=== PATIENT | female | born 1955 | race Caucasian/White ===

== ENCOUNTER → 2016-04-16 | Outpatient (CLI) | payer BC ==
[~2016-04-16] MED LIST: ACET-1256 PO; CALC600T9 PO; CIPR-255 PO; CLB/200 PO; FLUO40CA8 PO; HYDR-5688 PO; MULTTAB58 PO; OPTIRAY 320 IV PRN
--- NOTE | 2016-04-16 12:28 | DIAGNOSTIC IMAGING REPORT ---
CT OF THE CHEST WITH IV CONTRAST CLINICAL HISTORY: Left lower lobe pulmonary nodule. COMPARISON STUDY: CT of the abdomen and pelvis June 13, 2015. TECHNIQUE: Following IV administration of 92 mL of Optiray-320, helical axial images of the chest were obtained. Images were viewed in the axial, sagittal and coronal planes. IV contrast was administered without complication. CT DOSE: 650.30 mGycm FINDINGS: No enlarged axillary, mediastinal or hilar lymph nodes are present. The size of the heart is normal. There is no pericardial effusion. The central airways are patent. There is no consolidation. A 9 mm circumscribed nodule within the medial basilar segment of the left lower lobe is noted on image 237 of 326. This has slightly increased in size since exam of June 13, 2015 when it measured 8 mm. This may contain a few small foci of fat. There is a calcite granulomas within the right upper lobe. Bony thorax is unremarkable. There are few calcifications within the liver which were present on prior exam. IMPRESSION: Slight increase in size of the circumscribed 9 mm left lower lobe nodule since exam of June 13, 2015. This may contain a few foci of fat. This may reflect a hamartoma although a slow-growing neoplasm such as a carcinoid would be difficult to exclude. A follow-up chest CT in 6 months is recommended. Electronically signed by: Dakota Pham M.D. 04/16/2016 12:27 PM Dictated Date/Time: 04/16/2016 9:56 AM
== END | disposition home or self-care (01) ==
LOC: C.CTS 09:16
PROVIDERS: ATTEND Internal Medicine
DX: R91.1 Solitary pulmonary nodule (principal)

== ENCOUNTER → 2016-10-29 | Outpatient (CLI) | payer BC ==
[~2016-10-29] MED LIST changes: -OPTIRAY 320 IV PRN
== END | disposition home or self-care (01) ==
LOC: C.LABSPEC 14:41
PROVIDERS: ATTEND Internal Medicine
DX: Z12.11 Encounter for screening for malignant neoplasm of colon (principal)

== ENCOUNTER → 2016-11-02 | Outpatient (CLI) | payer BC ==
[2016-11-02 13:09] LABS: BASO % 0.8 %; BASO ABS # 0.07 K/uL (0-0.2); COMPLETE YES; EOS % 1.9 %; HEMATOCRIT 43.7 % (37-47); IG% 0.5 %; LYMPH % 35.7 %; LYMPH ABS # 3.16 K/uL (1.2-3.4); MEAN CELL VOLUME 89.4 fL (80-100); MEAN CORPUSCULAR HGB CONC 31.4 g/dl (32-36); MEAN PLATELET VOLUME 9.3 fL (7.4-10.4); MONO % 8.5 %; NEUT % 52.6 %; PLATELET COUNT 311 K/uL (130-400); RED BLOOD COUNT 4.89 M/uL (4.2-5.4); WHITE BLOOD COUNT 8.86 K/uL (4.8-10.8)
[2016-11-02 13:30] LABS: ESTIMATED AVERAGE GLUCOSE 123 mg/dl; HA1C FLAG Normal (Normal)
[2016-11-02 13:41] LABS: ALT/SGPT 37 U/L (12-78); AST/SGOT 19 U/L (15-37); BLOOD UREA NITROGEN 15 mg/dl (7-18); BUN/CREATININE RATIO 22.6 (10-20); CALCIUM 8.9 mg/dl (8.5-10.1); CARBON DIOXIDE 25 mmol/L (21-32); CHLORIDE 107 mmol/L (98-107); CHOLESTEROL 243 mg/dl (0-200); CREATININE 0.68 mg/dl (0.60-1.20); GLUCOSE 101 mg/dl (70-99); POTASSIUM 4.3 mmol/L (3.5-5.1); SODIUM 139 mmol/L (136-145)
[2016-11-02 13:43] LABS: ALKALINE PHOSPHATASE 68 U/L (45-117); CHOLESTEROL/HDL RATIO 4.3; HDL CHOLESTEROL 56 mg/dl; TRIGLYCERIDES 171 mg/dl (0-150); VERY LOW DENSITY LIPOPROT CALC 34 mg/dl
== END | disposition home or self-care (01) ==
LOC: C.LABSPEC 12:30
PROVIDERS: ATTEND Internal Medicine
DX: Z00.01 Encounter for general adult medical examination with abnormal findings (principal); R73.9 Hyperglycemia, unspecified; F32.9 Major depressive disorder, single episode, unspecified; E78.5 Hyperlipidemia, unspecified

== ENCOUNTER → 2016-11-11 | Outpatient (CLI) | payer BC ==
--- NOTE | 2016-11-11 16:11 | MAMMOGRAPHY REPORT ---
BILATERAL DIGITAL SCREENING MAMMOGRAM TOMOSYNTHESIS WITH CAD: 11/11/2016 CLINICAL HISTORY: Routine screening. Patient has no complaints. TECHNIQUE: Breast tomosynthesis in addition to standard 2D mammography was performed. Current study was also evaluated with a Computer Aided Detection (CAD) system. COMPARISON: Comparison is made to exams dated: 11/11/2015 mammogram, 11/08/2014 mammogram, 10/31/2014 m ammogram, 10/30/2013 mammogram, 05/23/2013 mammogram, and 11/01/2012 mammogram - [facility] nter. BREAST COMPOSITION: There are scattered areas of fibroglandular density in both breasts. FINDINGS: No suspicious masses, calcifications, or areas of architectural distortion are noted in ei ther breast. There has been no significant interval change compared to prior exams. 10 mm focal asym metry in the left upper outer quadrant posteriorly is not significantly changed compared to multiple prior exams including the 2010 and 2009 exams, and felt to be benign given long-term stability. Scat tered bilateral benign-appearing calcifications are again noted. IMPRESSION: ACR BI-RADS CATEGORY 2: BENIGN There is no mammographic evidence of malignancy. A 1 year screening mammogram is recommended. The pa tient will receive written notification of the results. Approximately 10% of breast cancers are not detected with mammography. A negative mammographic report should not delay biopsy if a clinically suggestive mass is present. Meilssa Escobedo M.D. /:11/11/2016 15:38:18 [place] Operator: Polina MEDEL(Yrn)(Stephanie)([place]), [facility] letter sent: Normal 1/2 BI-RADS Code: ACR BI-RADS Category 2: Benign
== END | disposition home or self-care (01) ==
LOC: C.MAMM 11:44
PROVIDERS: ATTEND Internal Medicine
DX: Z12.31 Encounter for screening mammogram for malignant neoplasm of breast (principal)

== ENCOUNTER → 2017-01-03 | Outpatient (CLI) | payer BC ==
[2017-01-03 13:00] LABS: BASO % 0.1 %; BASO ABS # 0.01 K/uL (0-0.2); COMPLETE YES; HEMATOCRIT 35.5 % (37-47); IG% 0.3 %; LYMPH ABS # 1.31 K/uL (1.2-3.4); MEAN CORPUSCULAR HEMOGLOBIN 29.1 pg (25-34); MEAN CORPUSCULAR HGB CONC 32.7 g/dl (32-36); MEAN PLATELET VOLUME 9.6 fL (7.4-10.4); MONO % 6.7 %; NEUT % 82.9 %; PLATELET COUNT 312 K/uL (130-400); RED BLOOD COUNT 3.99 M/uL (4.2-5.4); WHITE BLOOD COUNT 14.59 K/uL (4.8-10.8)
[2017-01-03 16:25] LABS: ALT/SGPT 41 U/L (12-78); AST/SGOT 23 U/L (15-37); BLOOD UREA NITROGEN 10 mg/dl (7-18); BUN/CREATININE RATIO 14.2 (10-20); CALCIUM 8.9 mg/dl (8.5-10.1); CARBON DIOXIDE 26 mmol/L (21-32); CHLORIDE 101 mmol/L (98-107); CREATININE 0.71 mg/dl (0.60-1.20); GLUCOSE 174 mg/dl (70-99); POTASSIUM 3.4 mmol/L (3.5-5.1); SODIUM 135 mmol/L (136-145)
[2017-01-03 16:31] LABS: ALB/GLOB RATIO 0.6 (0.9-2); ALKALINE PHOSPHATASE 89 U/L (45-117)
== END | disposition home or self-care (01) ==
LOC: C.LABSPEC 12:32
PROVIDERS: ATTEND Internal Medicine
DX: J40 Bronchitis, not specified as acute or chronic (principal)

== ENCOUNTER → 2017-01-03 | Outpatient (CLI) | payer BC ==
--- NOTE | 2017-01-03 10:43 | DIAGNOSTIC IMAGING REPORT ---
CHEST 2 VIEWS ROUTINE HISTORY: BRONCHITIS R/O RT SIDE PNEUMONIA COMPARISON: Chest 10/29/2014. FINDINGS: The lungs are clear. Cardiac silhouette is normal in size. No pleural effusions. No pneumothorax. Low lung volumes. IMPRESSION: No significant change compared to the prior study. No acute process. Electronically signed by: Chacho Solorio M.D. 01/03/2017 10:42 AM Dictated Date/Time: 01/03/2017 10:40 AM
== END | disposition home or self-care (01) ==
LOC: C.RAD 10:21
PROVIDERS: ATTEND Internal Medicine
DX: J40 Bronchitis, not specified as acute or chronic (principal)

== ENCOUNTER → 2017-02-01 | Outpatient (CLI) | payer BC ==
--- NOTE | 2017-02-01 13:39 | DIAGNOSTIC IMAGING REPORT ---
CHEST 2 VIEWS ROUTINE CLINICAL HISTORY: Persistent cough COMPARISON STUDY: 01/03/2017 FINDINGS: The cardiac and mediastinal contours are normal. There is no evidence of focal pulmonary consolidation. There is no evidence of failure. No pleural effusions are visualized.[ There is a linear opacity within the right midlung zone likely representing subsegmental atelectasis. IMPRESSION: Subsegmental atelectatic changes within the right perihilar region. Otherwise negative chest. Electronically signed by: Manuel Hill M.D. 02/01/2017 1:38 PM Dictated Date/Time: 02/01/2017 1:37 PM
[2017-02-01 14:42] LABS: BASO % 0.1 %; BASO ABS # 0.02 K/uL (0-0.2); COMPLETE YES; EOS % 0.3 %; HEMATOCRIT 32.4 % (37-47); IG% 0.8 %; LYMPH % 11.1 %; MEAN CELL VOLUME 85.9 fL (80-100); MEAN CORPUSCULAR HEMOGLOBIN 27.1 pg (25-34); MEAN CORPUSCULAR HGB CONC 31.5 g/dl (32-36); MEAN PLATELET VOLUME 8.7 fL (7.4-10.4); MONO % 7.8 %; NEUT % 79.9 %; PLATELET COUNT 432 K/uL (130-400); RED BLOOD COUNT 3.77 M/uL (4.2-5.4); WHITE BLOOD COUNT 16.15 K/uL (4.8-10.8)
[2017-02-01 14:53] LABS: URINE APPEARANCE CLEAR (CLEAR); URINE BILIRUBIN NEG (NEG); URINE COLOR YELLOW; URINE NITRITE NEG (NEG); UROBILINOGEN NEG (NEG)
[2017-02-01 14:56] LABS: MANUAL MICROSCOPIC REQUIRED? NO; REVIEW REQ? NO
[2017-02-01 15:08] LABS: ALT/SGPT 21 U/L (12-78); AST/SGOT 12 U/L (15-37); BLOOD UREA NITROGEN 11 mg/dl (7-18); BUN/CREATININE RATIO 17.8 (10-20); CALCIUM 8.3 mg/dl (8.5-10.1); CARBON DIOXIDE 24 mmol/L (21-32); CHLORIDE 103 mmol/L (98-107); GLUCOSE 110 mg/dl (70-99); POTASSIUM 3.3 mmol/L (3.5-5.1); SODIUM 138 mmol/L (136-145)
[2017-02-01 15:19] LABS: ALB/GLOB RATIO 0.4 (0.9-2); ALKALINE PHOSPHATASE 96 U/L (45-117)
[2017-02-02 06:06] LABS: ESTIMATED AVERAGE GLUCOSE 143 mg/dl; HA1C FLAG Normal (Normal)
== END | disposition home or self-care (01) ==
LOC: C.LAB 12:52
PROVIDERS: ATTEND Internal Medicine
DX: R73.9 Hyperglycemia, unspecified (principal); A68.9 Relapsing fever, unspecified; R53.83 Other fatigue; R10.9 Unspecified abdominal pain; R05 Cough

== ENCOUNTER → 2017-02-04 | Outpatient (CLI) | payer BC ==
[2017-02-04 15:59] LABS: BASO % 0.2 %; BASO ABS # 0.03 K/uL (0-0.2); COMPLETE YES; EOS % 0.7 %; HEMATOCRIT 31.4 % (37-47); IG% 0.7 %; LYMPH % 16.4 %; LYMPH ABS # 2.46 K/uL (1.2-3.4); MEAN CELL VOLUME 85.8 fL (80-100); MEAN CORPUSCULAR HGB CONC 31.5 g/dl (32-36); MEAN PLATELET VOLUME 8.8 fL (7.4-10.4); MONO % 8.8 %; NEUT % 73.2 %; PLATELET COUNT 431 K/uL (130-400); RED BLOOD COUNT 3.66 M/uL (4.2-5.4)
[2017-02-04 16:09] LABS: BLOOD UREA NITROGEN 11 mg/dl (7-18); CALCIUM 8.9 mg/dl (8.5-10.1); CARBON DIOXIDE 24 mmol/L (21-32); CHLORIDE 103 mmol/L (98-107); CREATININE 0.59 mg/dl (0.60-1.20); GLUCOSE 115 mg/dl (70-99); POTASSIUM 3.6 mmol/L (3.5-5.1); SODIUM 136 mmol/L (136-145)
[2017-02-04 16:25] LABS: IMMUNOGLOBULN M 72.4 mg/dL (40-230)
== END | disposition home or self-care (01) ==
LOC: C.LABSPEC 15:36
PROVIDERS: ATTEND Internal Medicine
DX: R77.1 Abnormality of globulin (principal); E87.6 Hypokalemia; D64.9 Anemia, unspecified

== ENCOUNTER → 2017-02-15 | Outpatient (CLI) | payer BC ==
[2017-02-15 18:16] LABS: BASO % 0.2 %; BASO ABS # 0.03 K/uL (0-0.2); COMPLETE YES; EOS % 0.7 %; HEMATOCRIT 29.6 % (37-47); IG% 0.6 %; LYMPH % 15.4 %; LYMPH ABS # 2.12 K/uL (1.2-3.4); MEAN CELL VOLUME 84.8 fL (80-100); MEAN CORPUSCULAR HEMOGLOBIN 26.1 pg (25-34); MEAN CORPUSCULAR HGB CONC 30.7 g/dl (32-36); MEAN PLATELET VOLUME 8.6 fL (7.4-10.4); MONO % 11.4 %; NEUT % 71.7 %; PLATELET COUNT 424 K/uL (130-400); RED BLOOD COUNT 3.49 M/uL (4.2-5.4); WHITE BLOOD COUNT 13.74 K/uL (4.8-10.8)
[2017-02-15 18:29] LABS: ALT/SGPT 21 U/L (12-78); BLOOD UREA NITROGEN 16 mg/dl (7-18); BUN/CREATININE RATIO 22.1 (10-20); CALCIUM 8.9 mg/dl (8.5-10.1); CARBON DIOXIDE 24 mmol/L (21-32); CHLORIDE 103 mmol/L (98-107); CREATININE 0.73 mg/dl (0.60-1.20); GLUCOSE 99 mg/dl (70-99); POTASSIUM 3.7 mmol/L (3.5-5.1); SODIUM 136 mmol/L (136-145)
[2017-02-15 18:34] LABS: ALB/GLOB RATIO 0.5 (0.9-2); ALKALINE PHOSPHATASE 107 U/L (45-117); AST/SGOT 17 U/L (15-37); FERRITIN 353.7 ng/ml (8.0-388.0)
[2017-02-15 18:57] LABS: LYME DISEASE AB IGM NEG (NEG)
[2017-02-15 18:59] LABS: LYME DISEASE AB IGG NEG (NEG)
== END | disposition home or self-care (01) ==
LOC: C.LABSPEC 17:42
PROVIDERS: ATTEND Internal Medicine
DX: R50.9 Fever, unspecified (principal); R63.4 Abnormal weight loss; D64.9 Anemia, unspecified

== ENCOUNTER 2017-02-17 13:51 | Inpatient (IN) | payer BC ==
[~2017-02-17] VITALS: Ht 154.9 cm; Wt 75.9 kg
[~2017-02-17 13:51] MED LIST changes: -OPTIRAY 320 IV PRN
[2017-02-17 14:30] VITALS: BP 145/91; PULSE 117; TEMP 37.5; O2SAT 99
[2017-02-17] MEDS ORDERED: ACETAMINOPHEN IV 650 MG in EMPTY BAG 0 ML IV PRN (14:45)
[2017-02-17] MEDS ORDERED: ONDANSETRON INJ 8 MG in DEXTROSE 5% 50ML 50 ML IV PRN (14:45)
[2017-02-17] MEDS ORDERED: AMPICILLIN/SULBACTAM SOD INJ 3,000 MG in SODIUM CHLORIDE 0.9% 100ML 100 ML IV SCH (14:45)
[2017-02-17] MEDS ORDERED: PATIENT'S HEIGHT AND/OR WEIGHT NEEDED SCH (14:45)
[2017-02-17] MEDS ORDERED: AMPICILLIN/SULBACTAM SOD INJ 3,000 MG in SODIUM CHLORIDE 0.9% 100ML 100 ML IV ONE (15:00)
[2017-02-17 15:25] LABS: BASO % 0.2 %; BASO ABS # 0.03 K/uL (0-0.2); HEMATOCRIT 31.9 % (37-47); IG% 0.8 %; LYMPH % 13.4 %; LYMPH ABS # 2.29 K/uL (1.2-3.4); MEAN CELL VOLUME 84.2 fL (80-100); MEAN CORPUSCULAR HEMOGLOBIN 26.1 pg (25-34); MEAN PLATELET VOLUME 8.4 fL (7.4-10.4); MONO % 8.2 %; NEUT % 77.4 %; PLATELET COUNT 431 K/uL (130-400); RED BLOOD COUNT 3.79 M/uL (4.2-5.4); WHITE BLOOD COUNT 17.11 K/uL (4.8-10.8)
[2017-02-17 15:30] LABS: COMPLETE YES
[2017-02-17 15:39] LABS: INR 1.3 (0.9-1.1); PARTIAL THROMBOPLASTIN RATIO 1.2; PROTHROMBIN TIME (PATIENT) 13.5 SECONDS (9.0-12.0)
[2017-02-17 15:50] LABS: ALB/GLOB RATIO 0.4 (0.9-2); ALKALINE PHOSPHATASE 116 U/L (45-117); ALT/SGPT 21 U/L (12-78); AMYLASE 31 U/L (25-115); AST/SGOT 16 U/L (15-37); BLOOD UREA NITROGEN 10 mg/dl (7-18); BUN/CREATININE RATIO 13.4 (10-20); CALCIUM 8.9 mg/dl (8.5-10.1); CARBON DIOXIDE 27 mmol/L (21-32); CHLORIDE 99 mmol/L (98-107); CREATININE 0.72 mg/dl (0.60-1.20); GLUCOSE 89 mg/dl (70-99); POTASSIUM 3.8 mmol/L (3.5-5.1); SODIUM 131 mmol/L (136-145)
[2017-02-17] MEDS: SODIUM CHLORIDE 0.9% 1000ML 1,000 ML IV SCH (15:52)
--- NOTE | 2017-02-17 16:03 | SURGICAL CONSULTATION ---
DATE OF ADMISSION: 02/17/2017 SUMMARY: The chart was reviewed. The past medical history is extensively reviewed with the primary physician, Dr. Go and also the CAT scan and the recent imaging were reviewed with radiology, Dr. Carter and the patient was seen. The patient has a large abscess involving right lobe of the liver that would possibly be better treated with interventional radiologist at a tertiary center. It was felt that it is a complex abscess that may require more specialized catheters that would be available here. Also has a pelvic abscess probably related to diverticular problems that she was admitted here about a year ago with diverticulitis. OBJECTIVE: Katrin is in no acute distress. She is resting, walking around the room quietly with her family in room. She is coherent with what is going on. She is not complaining of any abdominal pain. RECOMMENDATIONS: At this point, my recommendation as stated would be to refer the patient to a tertiary center, certainly does not need to be done immediately tonight. She is started on broad spectrum antibiotics and pending her treatment there, whether or not she comes back here or may keep her there for a few days, this was discussed with the patient. Eventually, once these abscesses resolved, there are 2 issues that need to be addressed is the diverticular problem and secondly she does have a lesion on the left lower lobe that may warrant further specification. The lesion of left lower lobe, I did not discuss with the patient at this time. MUMTAZ
[2017-02-17 16:09] VITALS: BMI 31.6
[2017-02-17] MEDS ORDERED: PIPERACILL/TAZOBAC CONSULT ACTIVE PRN (16:15)
[2017-02-17] MEDS ORDERED: PIPERACILL/TAZOBAC IV 3.375 GM in DEXTROSE 5% 100ML 100 ML IV ONE (16:15)
[2017-02-17] MEDS: METRONIDAZOLE / NSS 500 MG in PREMIXED NSS 100 ML IV SCH (17:20)
[2017-02-17 17:39] VITALS: BP 145/91; PULSE 110; TEMP 37.5; O2SAT 99; Ht 154.9 cm; Wt 75.9 kg
--- NOTE | 2017-02-17 18:20 | History and Physical ---
History & Physical Date of Service Feb 17, 2017. History & Physical ADMISSION DATE : 02/17/2017 CHIEF COMPLAINT : 62-year-old female admitted directly with multiple problems including febrile illness, and findings of right hepatic lobe abscess and pelvic abscess on her CT scan of the abdomen and pelvis which were done today. PRESENT ILLNESS : Patient was seen in the office on 01/03/2017. At that time she was complaining of fever and chills. She also had severe cough. To the point where she has vomiting with her cough. She also had evidence of left otitis media. She was started on Levaquin 500 milligrams daily for 10 days. The antibiotic was changed because she did not tolerate the Levaquin and she was treated with Augmentin instead. She completed the course. She was seen back in the office on 01/07/2017. He was feeling improved. She did not have any fever or any changes. But she was still having a cough. But it was subsiding. He continuing to have recurrent episodes where she feels exhausted and tired. She was asked to continue the course of her antibiotic. I also checked a chest x- ray which was unremarkable for any evidence of infiltrate. After completion of her antibiotic course she was seen again in the office on 02/01/2017. She was having recurrent fever and chills. As noted she did complete the course of antibiotic. She was also complaining of feeling tired and exhausted. She was having recurrent cough. To the point where she gags. She had some diarrhea. But she usually has loose stool and this is really nothing new for her. Additional blood tests were done. Her WBC count was elevated. Her sedimentation rate was elevated to 84. Her globulin level was also elevated. Serum protein electrophoresis was unremarkable for any monoclonal gammopathy. He has not had any chest pain. She felt some shortness of breath with walk. She had no nausea. She was vomiting only when she gags after she coughs. She did not experience any abdominal pain. She did not have any change in her bowel habits. No blood in her stool. Additional laboratory tests were ordered. Her WBC count was still elevated but started to come down. Initially it was 14,590 on 01/03/2017. On 02/01/2017 it was 16,150. Then came down to 15 ,000 on 02/04/2017 and 13,740 on 02/15/2017. Her sedimentation rate was 84 initially and came down to 76. Repeat chest x-ray showed no evidence of any infiltrate. He saw her in the office on 02/15/2017. She was still complaining of recurrent vomiting especially with cough. She had recurrent fever. Up to 101. On examination she had very minimal tenderness in the right upper quadrant and. A CT scan of the abdomen and pelvis were done today. Her CT scan was markedly abnormal. She had a complex cystic collection of the right lobe of the liver measuring 11 cm in diameter. He also developed a pelvic mass. She does have diverticulosis. There was no evidence of diverticulitis. In addition she has been noted to have a left lower lobe pulmonary nodule over a year ago. Repeat CT scan was done and the size of the nodule went up from 8- 9 mm. But on the [address] scan that was done today the nodule is measuring 11 mm. This is something that needs to be evaluated in the future. After the results of the CT scan of the abdomen and pelvis became available I called the patient. Explained to her the results. Made arrangements for direct admission. I also spoke with Dr. Sacha Gomez and requested a surgical consultation. I also spoke with the radiologist and did not feel comfortable doing any percutaneous drainage here at our hospital. PAST MEDICAL HISTORY : * Acute diverticulitis. Hospitalized in May 2015 and received IV antibiotics. * Known diverticulosis * Left total hip arthroplasty on 11/15/[address] Nolberto Griggs * [place] teeth extraction in the remote past * About 25 years ago she had a retained placenta. * Right rotator cuff tear requiring surgery about 12 years ago. * Hypercholesterolemia. Not requiring any drug therapy * Depression. She is on fluoxetine. SOCIAL HISTORY : She is . Had 2 children. No history of any smoking. Occasional wine. No excessive coffee tea or soft drinks. 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 FAMILY HISTORY : Her mother age 62 had heart disease and an acute myocardial infarction. Her father at age 88 had coronary artery disease and congestive heart failure. She has 3 sisters. One sister has diabetes. One sister has Sjogren' s syndrome one sister has Graves' disease. Children are well. ALLERGIES : NONE CURRENT MEDICATIONS : * Celebrex 200 mg daily * Fluoxetine 40 mg daily * Multivitamin 1 daily * REVIEW OF SYSTEMS : As noted she has been feeling very tired and weak. Gets exhausted very easily. She has had recurrent fever. Chills at times. Denied any headache. No lightheadedness. No earache or sore throat. No neck pain. Denied any chest pain. Shortness of breath that time. Persistent cough. No hemoptysis. No abdominal pain. No recent change in her bowel habits. She does have loose stool usually. No blood in her stool. No urinary problem. No pain in her back or extremities PHYSICAL EXAMINATION : General: Well-developed. No acute distress. Her recorded weight is 75.9 kg, height 154.9 cm, BMI 31.6. She has lost a total of about 12 pounds with this acute illness. Vital signs: Blood pressure 145/91, pulse 117, respiration 20, temperature 37.5 , oxygen saturation 99% on room air Skin is warm and dry. There is no rash. She does have multiple skin tags on her neck and face. Also evidence of hirsutism. Neck is supple. Nontender. No lymph node or thyroid enlargement. No JVD. Normal carotid pulses. No carotid bruit. Chest is normal. No evidence of any chest wall tenderness. Heart regular heart sounds without any murmur rub or gallop. Lungs are clear. No evidence of any wheezing. No rhonchi. Abdomen is soft. Very minimal tenderness in the right upper quadrant. There is no guarding or rebound. No organomegaly or masses. Good bowel sounds. Back no spinal or CVA tenderness Extremities no edema clubbing or cyanosis. No joint or muscle tenderness. Osteoarthritis. Good pulses. Left hip scar from prior surgery Neurological examination she is alert and oriented. There is no deficit. LABORATORY TESTS : WBC count 17,110, hemoglobin 9.9, hematocrit 31.9, platelet count 431,000. Prothrombin time 13.5, INR 1.3, PTT 29.9. Sodium 131, potassium 3.8, chloride 99, CO2 27, BUNs and 10, creatinine 0.72, glucose 89, calcium 8.9, total bilirubin 0.4, AST 16, AST 21, alkaline phosphatase 116, total protein 7.9, albumin 2.4, globulin 5.5, amylase 31, lipase 170. Chest x-ray done earlier today did not show any significant abnormality CT scan of the abdomen and pelvis results are as noted above. ASSESSMENT : * Large right hepatic lobe abscess measuring 11 cm in diameter * Pelvic abscess. Most likely diverticular * Diverticulosis * Recent weight loss * Mild depression * Osteoarthritis PLAN : Patient was admitted to medical bed. Resuscitation level I. Cultures were done. She was started on IV antibiotics. Currently on Zosyn and metronidazole intravenously. She was started on IV fluid. Patient was seen in surgical consultation by Dr. Sacha Gomez. Unfortunately the radiologist did not feel that they could do the percutaneous drainage here in our hospital. The recommendation was to transfer her to [facility]. I called [facility]. I spoke with the interventional radiologist. Dr. Garcia. Tentatively scheduled the patient to have the percutaneous drainage done tomorrow around 1:00. But he recommended that I speak with another physician to make arrangements for admission in anticipation of any need for any acute treatment after the procedure. I spoke with Dr. Pelaez, hospitalist at [facility]. He accepted the patient. The plan at this time is to transfer the patient tomorrow morning. Anticipating arrival at [facility] on 11:00 in the morning. Procedure scheduled for 1:00 in the afternoon. If after the procedure to [facility] medical team feels that patient can be transferred back here to continue her treatment and we will do that. I will wait for the recommendation. All the findings and the plan of treatment have been discussed with the patient and her and her sister. Everybody is in agreement.
[2017-02-17] MEDS: HYDROCODONE/HOMATROPINE SYRUP 5MG/1.5MG 5ML UDP PO PRN (20:05)
[2017-02-17 21:03] VITALS: TEMP 37.2
[2017-02-17] MEDS: PIPERACILL/TAZOBAC IV 3.375 GM in DEXTROSE 5% 100ML 100 ML IV SCH (22:46)
[2017-02-17 23:43] VITALS: BP 114/77; PULSE 93; TEMP 37; O2SAT 96
[2017-02-18] MEDS: SODIUM CHLORIDE 0.9% 1000ML 1,000 ML IV SCH (01:08)
[2017-02-18] MEDS: METRONIDAZOLE / NSS 500 MG in PREMIXED NSS 100 ML IV SCH (01:08)
[2017-02-18] MEDS: PIPERACILL/TAZOBAC IV 3.375 GM in DEXTROSE 5% 100ML 100 ML IV SCH (05:32)
[2017-02-18 06:04] LABS: URINE APPEARANCE CLEAR (CLEAR); URINE BILIRUBIN NEG (NEG); URINE COLOR YELLOW; URINE NITRITE NEG (NEG); URINE SPECIFIC GRAVITY 1.028 (1.000-1.030); UROBILINOGEN NEG (NEG)
[2017-02-18 06:12] LABS: MANUAL MICROSCOPIC REQUIRED? NO; REVIEW REQ? NO
[2017-02-18 06:15] LABS: HEMATOCRIT 27.1 % (37-47); MEAN CELL VOLUME 83.6 fL (80-100); MEAN CORPUSCULAR HEMOGLOBIN 26.2 pg (25-34); MEAN CORPUSCULAR HGB CONC 31.4 g/dl (32-36); MEAN PLATELET VOLUME 8.2 fL (7.4-10.4); PLATELET COUNT 354 K/uL (130-400); RED BLOOD COUNT 3.24 M/uL (4.2-5.4); WHITE BLOOD COUNT 12.39 K/uL (4.8-10.8)
[2017-02-18 06:48] LABS: BASO % 0.1 %; BASO ABS # 0.01 K/uL (0-0.2); COMPLETE YES; EOS % 0.5 %; HYPERSEGMENTED POLYS 1+; IG% 0.7 %; LYMPH % 14.9 %; LYMPH ABS # 1.84 K/uL (1.2-3.4); MONO % 9.8 %; POLYCHROMASIA 1+; VACUOLIZATION 1+
[2017-02-18 06:49] LABS: BUN/CREATININE RATIO 16.4 (10-20); CALCIUM 8.4 mg/dl (8.5-10.1); CREATININE 0.65 mg/dl (0.60-1.20); POTASSIUM 3.7 mmol/L (3.5-5.1)
[2017-02-18 07:01] LABS: ALB/GLOB RATIO 0.4 (0.9-2)
[2017-02-18 07:19] VITALS: BP 115/73; PULSE 95; TEMP 37.3; O2SAT 94
[2017-02-18] MEDS: HYDROCODONE/HOMATROPINE SYRUP 5MG/1.5MG 5ML UDP PO PRN (08:08)
[2017-02-18 08:29] VITALS: BP 115/73; PULSE 95; TEMP 37.3; O2SAT 94
--- NOTE | 2017-02-18 09:05 | Discharge Instructions ---
Discharge Instructions Date of Service Feb 18, 2017. Admission Reason for Admission: pelvic abscess Liver abscess Discharge Discharge Diagnosis / Problem: liver abscess. Pelvic abscess Discharge Goals Goal(s): Decrease discomfort, Improve function, Increase independence, Improve disease control Activity Recommendations Activity Limitations: as noted below (Transfer to acute care) . Current Hospital Diet Patient's current hospital diet: Regular Diet Discharge Diet Recommended Diet: Regular Diet Pending Studies Studies pending at discharge: no Laboratory Results Hemoglobin A1c Test 02/01/17 13:02 Range/Units Estimated Average Glucose 143 mg/dl Hemoglobin A1c 6.6 H 4.5-5.6 % Medical Emergencies . Who to Call and When: Medical Emergencies: If at any time you feel your situation is an emergency, please call 911 immediately. . Non-Emergent Contact Non-Emergency issues call your: Primary Care Provider . . "Provider Documentation" section prepared by Franklyn Go. . VTE Core Measure Inpt VTE Proph given/why not?: Treatment not indicated
--- NOTE | 2017-02-18 20:37 | Progress Note ---
Progress Note Date of Service Feb 18, 2017. Progress Note 62-year-old female admitted directly from home with evidence of pelvic abscess and a large right hepatic lobe abscess. She has history of diverticulosis and one episode of diverticulitis over a year ago. Patient presented with febrile illness, generalized fatigue, weight loss, recurrent nausea and vomiting. Patient was admitted. All other laboratory tests were done. Cultures were done. Surgical consultation was requested. She was seen by Dr. Sacha Gomez. She was started on IV antibiotic with Zosyn and metronidazole. She remains afebrile. Since her hospitalization. She denied any headache. No dizziness. No chest pain. She was complaining of persistent cough. No nausea or vomiting. No abdominal pain. EXAMINATION : GENERAL: Well-developed. No distress. VITAL SIGNS: 115/73, pulse 95, respiration 18, temperature 36.3, oxygen saturation 94% on room air SKIN: Warm and dry. No rash. HEENT: No mucosal abnormalities. NECK: Supple. Nontender. No lymph node or thyroid enlargement. HEART: Regular heart sounds. LUNGS: Clear. ABDOMEN: Soft. No evidence of any tenderness. No guarding or rebound. Good bowel sounds. BACK: No spine or CVA tenderness EXTREMITIES: No edema clubbing or cyanosis LABORATORY TESTS : WBC count 12,390, hemoglobin 8.5, hematocrit 27.1, platelet count 354,000. Sodium 135, potassium 3.7, chloride 100, CO2 27, BUNs 11, creatinine 0.65, glucose 114, calcium 8.4, total bilirubin 0.4, AST 11, AST 18, alkaline phosphatase 92, total protein 6.6, albumin 2.0, globulin 4.6. ASSESSMENT : * Pelvic abscess * Large right hepatic lobe abscess * Generalized weakness * Recent weight loss PLAN : * Arrangements have already been made last night for the patient to be transferred to [facility] today. Patient will have drainage of the liver abscess and possibly of the pelvic abscess. * She was transferred by ambulance today.
--- NOTE | 2017-03-03 22:15 | Discharge Summary ---
Discharge Summary Date of Service Mar 03, 2017. Discharge Summary ADMISSION DATE: 02/17/2017 DISCHARGE DATE: 02/18/2017. Patient was transferred to [facility] DISCHARGE DIAGNOSES: * liver abscess * Pelvic abscess * Weight loss * Diverticulosis * Mild depression * Osteoarthritis DISCHARGE MEDICATIONS: * metronidazole 500 mg IV every 8 hours * Zosyn 3.375 g IV every 8 hours * Sodium chloride 0.9% 100 cc per hour * IV acetaminophen 650 mg IV every 6 hours as needed * Zofran 8 mg IV every 4 hours as needed Consultation: Dr. Sacha Gomez in surgery 62-year-old female admitted with multiple problems including febrile illness, finding of right hepatic lobe abscess and pelvic abscess on her CT scan of the abdomen and pelvis which was done just prior to admission. Patient has had a febrile illness. Pulmonary evaluation had been unremarkable. She really did not have any significant abdominal pain. On her last examination she had minimal right-sided abdominal pain so a CT scan of the abdomen and pelvis were ordered. Showed abnormalities as noted above. I contacted the patient after the CT scan results were available and arranged for direct admission. Surgical consultation was requested. I spoke with Dr. Gomez. PAST MEDICAL HISTORY, SOCIAL HISTORY, FAMILY HISTORY: As noted on admission history and physical ALLERGIES:NON- ADMISSION MEDICATIONS: As noted on the home medication list PHYSICAL EXAMINATION AND LABORATORY TESTS ARE NOTED ON ADMISSION HISTORY AND PHYSICAL HOSPITAL COURSE: patient was admitted. All cultures were done.she was started on IV Zosyn and metronidazole. The radiologist did not feel that they are able to drain the abscess ease. The decision was made for her to be transferred to [facility]. She remained afebrile. She did not have any significant abdominal pain. She had no nausea no vomiting. Continued to have bowel movements. On 02/18/2017 bed was available at [facility] and she was then snared by ambulance.
== END 2017-02-18 09:00 | disposition short-term general hospital (02) | DRG 441 ==
LOC: C.4E 14:22
PROVIDERS: ADMIT Internal Medicine; ATTEND Internal Medicine
DX: K75.0 Abscess of liver (principal); K65.1 Peritoneal abscess; K57.80 Diverticulitis of intestine, part unspecified, with perforation and abscess without bleeding; K57.90 Diverticulosis of intestine, part unspecified, without perforation or abscess without bleeding; E78.00 Pure hypercholesterolemia, unspecified; F32.9 Major depressive disorder, single episode, unspecified; M19.90 Unspecified osteoarthritis, unspecified site; R63.4 Abnormal weight loss

== ENCOUNTER → 2017-02-17 | Outpatient (CLI) | payer BC ==
[~2017-02-17] MED LIST changes: +OPTIRAY 320 IV PRN
--- NOTE | 2017-02-17 10:13 | DIAGNOSTIC IMAGING REPORT ---
TWO VIEW CHEST CLINICAL HISTORY: Persistent cough. FINDINGS: PA and lateral chest radiographs are compared to study dated 02/01/2017 and 10/29/2014, as well as correlated with chest CT dated 04/16/2016. The cardiomediastinal silhouette is unremarkable. There is elevation of the right hemidiaphragm with associated right basilar atelectasis. The lungs and pleural spaces are otherwise clear. There is no pneumothorax. The bony thorax appears intact. IMPRESSION: 1. No active disease in the chest. 2. There is chronic elevation of the right hemidiaphragm with right basilar atelectasis. This has increased from the 2014 examination. Electronically signed by: Aguilar Stoddard M.D. 02/17/2017 10:11 AM Dictated Date/Time: 02/17/2017 10:10 AM
--- NOTE | 2017-02-17 12:16 | DIAGNOSTIC IMAGING REPORT ---
ABD/PELVIS IV AND ORAL CONT CLINICAL HISTORY: 62 years-old Female presenting with UPPER ABD PAIN,WT LOSS, right upper quadrant abdominal pain radiating to the back accompanied by fatigue and fever, history of diverticulitis. TECHNIQUE: Multidetector CT of the abdomen and pelvis was performed after the administration of oral and intravenous contrast. IV contrast: 93 mL of Optiray 320. A dose lowering technique was used consistent with the principles of ALARA (as low as reasonably achievable). COMPARISON: 06/13/2015. CT DOSE (mGy.cm): The estimated cumulative dose is 1238.28 mGy.cm. FINDINGS: Brick Pointer topogram: Total left hip arthroplasty. Lung bases: Interval increase in size of the medial basal left lower lobe solid pulmonary nodule, which now measures 11 mm (series 3 image 126), previously 7 mm when remeasured at a comparable level. Calcified granuloma noted in the right upper lobe. Bandlike opacity at the right lung base likely atelectasis or scarring. Normal heart size. No pericardial or pleural effusion. Liver: Interval development of a large complex multicystic lesion measuring up to 11 cm in the right hepatic lobe, new from prior. No additional lesion. Patent hepatic vasculature. Biliary: No intrahepatic or extrahepatic biliary ductal dilatation. Normal gallbladder. Pancreas: Normal. Spleen: Normal. Adrenal glands: Normal. Kidneys and ureters: Vague hypodensity in the lateral interpolar region of the left kidney with a wedgelike configuration and preservation of overlying cortical enhancement suggests an infarct. Few small hypodensities in the right kidney too small to characterize but likely cysts. No hydronephrosis. No perinephric fat stranding. Ureters normal. Distal left ureter poorly visualized secondary to regional streak artifact arising from hip arthroplasty. Bladder: Mass effect on the dome of the bladder secondary to the adjacent collection. Pelvic organs: The anterior uterine fundus is abutted by a gas and fluid containing rim enhancing collection. Otherwise uterus and ovaries normal. Few calcifications noted in the region of the right ovary, possibly phleboliths. Bowel: Sigmoid diverticulosis. No pericolonic inflammatory change to suggest acute diverticulitis. However, a rim-enhancing gas and fluid containing collection abuts the sigmoid serosa. Oral contrast has transited to the rectum. No evidence of extraluminal oral contrast. The appendix is normal. No bowel obstruction. Peritoneal cavity: At the site of one of the prior abscess is associated with prior diverticulitis, a rim-enhancing gas and fluid containing collection now measures 5.3 x 4.0 cm (series 3 image 416). This abuts the sigmoid serosa as well as the anterior uterine fundus and dome of the bladder. No oral contrast has reached the sigmoid colon, this collection does not appear to contain oral contrast despite the presence of gas. The implied fistulous connection may be arising from the sigmoid or the bladder. The previous second collection may have been absorbed into the single collection. No additional abscess. No free intraperitoneal fluid or gas. Lymph nodes: No enlarged lymph nodes in the abdomen or pelvis. Vasculature: Aorta and IVC patent and normal in caliber. Abdominal wall: Normal. Musculoskeletal: Degenerative changes of the spine. Total left hip arthroplasty. IMPRESSION: 1. Interval development of a large complex cystic collection in the right lobe of the liver. This is most concerning for a hepatic abscess given the prior diverticulitis and clinical scenario. 2. Interval enlargement of a pelvic abscess intimately associated with the sigmoid colon. The presence of gas within this collection implies a fistulous connection with hollow viscera, however, the absence of oral contrast extravasation into this collection makes assessment for the origin of the gas indeterminate. A fistulous connection with either the sigmoid colon or the bladder is possible. 3. No evidence of diverticulitis at this time. Diverticulosis. 4. Interval enlargement of the 11 mm solid pulmonary nodule at the left lower lobe. This is concerning for a primary bronchogenic neoplasm. The report will be called/faxed according to standard departmental protocol. Electronically signed by: Reed Davis M.D. 02/17/2017 12:15 PM Dictated Date/Time: 02/17/2017 12:01 PM
== END | disposition home or self-care (01) ==
LOC: C.CTS 09:24
PROVIDERS: ATTEND Internal Medicine
DX: R10.9 Unspecified abdominal pain (principal); R63.4 Abnormal weight loss; R50.9 Fever, unspecified; R05 Cough

== ENCOUNTER → 2017-02-28 | Outpatient (CLI) | payer BC ==
[~2017-02-28] MED LIST changes: -CALC600T9 PO; +CEFD300C2 PO; -CIPR-255 PO; -HYDR-5688 PO; +METR-163 PO; -MULTTAB58 PO; +ONDA4TAB10 SL
[2017-02-28 12:15] LABS: BASO % 0.7 %; BASO ABS # 0.06 K/uL (0-0.2); EOS % 2.3 %; EOS ABS # 0.19 K/uL (0-0.5); HEMATOCRIT 36.2 % (37-47); HEMOGLOBIN 10.9 g/dL (12.0-16.0); IG# 0.09 K/uL (0.00-0.02); LYMPH % 30.3 %; LYMPH ABS # 2.53 K/uL (1.2-3.4); MEAN CELL VOLUME 87.2 fL (80-100); MEAN CORPUSCULAR HEMOGLOBIN 26.3 pg (25-34); MEAN CORPUSCULAR HGB CONC 30.1 g/dl (32-36); MONO % 8.1 %; MONO ABS # 0.68 K/uL (0.11-0.59); NEUT % 57.5 %; PLATELET COUNT 397 K/uL (130-400); WHITE BLOOD COUNT 8.35 K/uL (4.8-10.8)
[2017-02-28 13:13] LABS: ALBUMIN 2.9 gm/dl (3.4-5.0); ALT/SGPT 25 U/L (12-78); BLOOD UREA NITROGEN 13 mg/dl (7-18); CALCIUM 9.3 mg/dl (8.5-10.1); CARBON DIOXIDE 27 mmol/L (21-32); CREATININE 0.65 mg/dl (0.60-1.20); GLUCOSE 108 mg/dl (70-99); POTASSIUM 4.1 mmol/L (3.5-5.1); SODIUM 137 mmol/L (136-145)
[2017-02-28 13:16] LABS: ALKALINE PHOSPHATASE 105 U/L (45-117); AST/SGOT 23 U/L (15-37); TOTAL PROTEIN 7.6 gm/dl (6.4-8.2)
--- NOTE | 2017-03-28 13:57 | CODING QUERY NO DIAGNOSIS ---
TREATMENT RENDERED WITHOUT A DIAGNOSIS To promote full compliance with coding requirements relating to patient care, physician participation is requested in all cases of childcare director uncertainty. Please assist us with providing a diagnosis/symptom for the test(s) below: A diagnosis/symptom was not documented on your Order. A valid diagnosis/symptom is required to bill all insurances. Please remember that we are unable to code a diagnosis of rule out, probable, possible, questionable, or suspected. Tests that require a diagnosis: * CBC W/ AUTO DIFF DIAGNOSIS: * CMP DIAGNOSIS: Provider Signature: Date: Thank you Li Jean Baptiste [facility] Information Management Once completed, please kindly fax back to [phone] For questions please call [phone]
== END | disposition home or self-care (01) ==
LOC: C.LABSPEC 11:48
PROVIDERS: ATTEND Internal Medicine Infectious Disease
DX: K75.0 Abscess of liver (principal)

== ENCOUNTER → 2017-03-07 | Outpatient (CLI) | payer BC ==
[2017-03-07 12:22] LABS: BASO % 0.8 %; BASO ABS # 0.08 K/uL (0-0.2); EOS % 4.3 %; EOS ABS # 0.42 K/uL (0-0.5); HEMATOCRIT 37.4 % (37-47); HEMOGLOBIN 11.4 g/dL (12.0-16.0); IG# 0.04 K/uL (0.00-0.02); LYMPH % 33.6 %; LYMPH ABS # 3.25 K/uL (1.2-3.4); MEAN CELL VOLUME 87.4 fL (80-100); MEAN CORPUSCULAR HEMOGLOBIN 26.6 pg (25-34); MEAN CORPUSCULAR HGB CONC 30.5 g/dl (32-36); MEAN PLATELET VOLUME 9.1 fL (7.4-10.4); MONO % 7.8 %; MONO ABS # 0.75 K/uL (0.11-0.59); NEUT % 53.1 %; NEUT ABS # 5.12 K/uL (1.4-6.5); PLATELET COUNT 359 K/uL (130-400); RED CELL DISTRIBUTION WIDTH CV 18.4 % (11.5-14.5); WHITE BLOOD COUNT 9.66 K/uL (4.8-10.8)
[2017-03-07 12:50] LABS: ALBUMIN 3.2 gm/dl (3.4-5.0); ALT/SGPT 39 U/L (12-78); AST/SGOT 31 U/L (15-37); BLOOD UREA NITROGEN 15 mg/dl (7-18); CALCIUM 9.3 mg/dl (8.5-10.1); CARBON DIOXIDE 24 mmol/L (21-32); CREATININE 0.73 mg/dl (0.60-1.20); GLUCOSE 143 mg/dl (70-99); POTASSIUM 3.8 mmol/L (3.5-5.1); SODIUM 135 mmol/L (136-145)
[2017-03-07 12:52] LABS: ALKALINE PHOSPHATASE 101 U/L (45-117); TOTAL PROTEIN 7.8 gm/dl (6.4-8.2)
== END | disposition home or self-care (01) ==
LOC: C.LABSPEC 12:44
PROVIDERS: ATTEND Internal Medicine Infectious Disease
DX: Z51.81 Encounter for therapeutic drug level monitoring (principal); Z79.899 Other long term (current) drug therapy

== ENCOUNTER → 2017-03-08 | Outpatient (CLI) | payer BC ==
[~2017-03-08] MED LIST changes: +OPTIRAY 320 IV PRN
--- NOTE | 2017-03-08 08:28 | DIAGNOSTIC IMAGING REPORT ---
ABD/PELVIS IV CONTRAST ONLY CLINICAL HISTORY: 62 years-old Female presenting with K75.0 Abscess of [id number] DiverticulitisC. TECHNIQUE: Multidetector CT of the abdomen and pelvis was performed after the administration of intravenous contrast. IV contrast: 120 mL of Optiray 320. A dose lowering technique was used consistent with the principles of ALARA (as low as reasonably achievable). COMPARISON: 02/17/2017. CT DOSE (mGy.cm): The estimated cumulative dose is 631.90. FINDINGS: Jukebox Checker topogram: A percutaneous pigtail catheter is positioned in the liver. Total left hip arthroplasty. Lung bases: Minimal dependent reticular opacities at the right lung base likely atelectasis or scarring. Persistent solid 11 mm pulmonary nodule in the medial basal segment of the left lower lobe (series 3 image 101), most recently 11 mm and previously 7 mm on 06/08/2015. Tip of a central venous catheter noted in the SVC. Normal heart size. Prominent pericardial lymph nodes at the right cardiophrenic angle. No pericardial or pleural effusion. Liver: Normal morphology. A percutaneous pigtail catheter is positioned within segment 7 at the site of prior hepatic abscess. The collection has traumatically decreased in size with only a small residual amount of fluid at the terminus of the drain measuring 3.7 x 1.7 cm in maximal axial dimensions, previously 11 cm in diameter. Minimal heterogeneity of surrounding liver parenchyma likely reactive change and edema a few parenchymal calcifications noted in the spleen possibly indicating prior granulomatous infection. Biliary: No intrahepatic or extrahepatic biliary ductal dilatation. Normal gallbladder. Pancreas: Normal. Spleen: Normal. Adrenal glands: Normal. Kidneys and ureters: Normal. No hydronephrosis. Bladder: Mild bladder wall thickening likely reactive secondary to adjacent abscess. Pelvic organs: Uterus and ovaries normal. Phleboliths noted in the right adnexa. Bowel: Diverticulosis of the sigmoid colon with wall thickening likely indicating chronic diverticular disease. No pericolonic inflammatory change at this time. Mild stool burden. The appendix is normal. No bowel obstruction. The sigmoid colon serosa abuts the rim-enhancing abscess in the superior pelvis. Peritoneal cavity: Persistent rim-enhancing fluid collection consistent with abscess along the bladder dome and abutting the anterior uterine fundus and mid sigmoid colon serosa. This collection has decreased in size now measuring 2.9 x 2.0 cm, previously 5.3 x 4.0 cm. This collection no longer contains gas. No free fluid or free gas in the abdomen or pelvis. Lymph nodes: No enlarged lymph nodes in the abdomen or pelvis. Vasculature: Aorta and IVC patent and normal in caliber. Abdominal wall: Small fat-containing umbilical hernia. Musculoskeletal: Total left hip arthroplasty without evidence of hardware competition. Facet arthropathy in the lower lumbar spine. IMPRESSION: 1. Significant interval decrease in size of the right hepatic lobe abscess status post percutaneous drain placement. Small amount of fluid remains at the terminus with surrounding parenchymal edema or inflammatory change. No new abscess. 2. Significant interval decrease in size of the superior pelvic abscess. This no longer contains a focus of gas. No clear fistula was demonstrated, although the absence of oral contrast limits evaluation. 3. Diverticulosis without evidence of diverticulitis on the current exam. 4. Solid 11 mm left lower lobe ulnar nodule increased in size since May 2015. This is concerning for primary bronchogenic neoplasm. The report will be called/faxed according to standard departmental protocol. Electronically signed by: Reed Davis M.D. 03/08/2017 8:27 AM Dictated Date/Time: 03/08/2017 8:05 AM
== END | disposition home or self-care (01) ==
LOC: C.CTS 07:54
PROVIDERS: ATTEND Internal Medicine Infectious Disease
DX: K75.0 Abscess of liver (principal); K57.92 Diverticulitis of intestine, part unspecified, without perforation or abscess without bleeding; R91.1 Solitary pulmonary nodule; N73.9 Female pelvic inflammatory disease, unspecified

== ENCOUNTER → 2017-03-11 | Day surgery (SDC) | payer BC ==
[~2017-03-11] VITALS: Ht 154.9 cm; Wt 77.5 kg
[~2017-03-11] MED LIST changes: -OPTIRAY 320 IV PRN
[2017-03-11 10:22] VITALS: BP 119/79; PULSE 80; TEMP 36.7; O2SAT 95; Ht 154.9 cm; Wt 77.5 kg
--- NOTE | 2017-03-11 10:36 | NUR ---
PICC line removed per md order, intact. 2x2 with gauze covered by a large tegaderm as dressing. Instructed to leave on for 24 hours.
== END | disposition home or self-care (01) ==
LOC: C.MTU 10:15
PROVIDERS: ATTEND Internal Medicine Infectious Disease
DX: K75.0 Abscess of liver (principal)

== ENCOUNTER 2017-03-14 08:47 | Emergency (ER) | payer BC ==
[~2017-03-14] VITALS: Ht 162.6 cm; Wt 90.0 kg
[~2017-03-14 08:47] MED LIST changes: -CEFD300C2 PO; -CLB/200 PO; -METR-163 PO; -ONDA4TAB10 SL
[2017-03-14 08:52] VITALS: TEMP 36.4; Ht 162.6 cm; Wt 90.0 kg
[2017-03-14] MEDS ORDERED: SODIUM CHLORIDE 0.9% 1000ML 500 ML IV STA (09:00)
[2017-03-14] MEDS ORDERED: OPTIRAY 320 IV PRN (09:15)
[2017-03-14 09:25] LABS: BASO % 1.3 %; BASO ABS # 0.08 K/uL (0-0.2); COMPLETE YES; EOS % 4.6 %; HEMATOCRIT 38.5 % (37-47); IG% 0.5 %; LYMPH % 31.7 %; LYMPH ABS # 1.92 K/uL (1.2-3.4); MEAN CELL VOLUME 84.8 fL (80-100); MEAN CORPUSCULAR HEMOGLOBIN 26.9 pg (25-34); MEAN CORPUSCULAR HGB CONC 31.7 g/dl (32-36); MEAN PLATELET VOLUME 9.1 fL (7.4-10.4); MONO % 6.4 %; NEUT % 55.5 %; PLATELET COUNT 296 K/uL (130-400); RED BLOOD COUNT 4.54 M/uL (4.2-5.4); WHITE BLOOD COUNT 6.06 K/uL (4.8-10.8)
[2017-03-14 09:32] LABS: INR 1.1 (0.9-1.1); PROTHROMBIN TIME (PATIENT) 11.3 SECONDS (9.0-12.0)
--- NOTE | 2017-03-14 09:35 | EMERGENCY ROOM VISIT NOTE ---
History Report prepared by Roxann: Verona Scanlon Under the Supervision of: Dr. Aguilar Yeung M.D. First contact with patient: 08:55 Chief Complaint: GI ASSESSMENT Stated Complaint: DIZZINESS/NAUSEA/VOMITING Nursing Triage Summary: bls call for nausea,vomiting, dizziness upgrade to ALS for "difficulty breathing and cardiac specialist" hx lever drain, draining pus, blood for 3-4 days total 50ml in 4 days. recent PICC line and pelvic drain removed. denies any sob or chest pain. states "vomited a smidge this am, has a grumbly tummy, dizzy when sits or stands up" History of Present Illness The patient is a 62 year old female who presents to the Emergency Room with complaints of constant dizziness beginning last night. The patient notes nausea and an episode of emesis occurring this morning. Presently, the patient is dizzy but not nauseous. At the beginning of December was having respiratory symptoms. She went to her PCP and was diagnosed with bronchitis and was put on an antibiotic for ten days. After finishing the antibiotics, she was still having a low grade fever and increased fatigue. The patient was then told by her PCP she may have a viral illness. She had close follow up with her PCP for a couple weeks because her fatigue was so severe. At one point, the patient had an episode of abdominal pain which she reported to her PCP. At the end of January, her PCP ordered a abdominal CT which showed a liver abscess and a smaller pelvic abscess. The patient then came to the hospital and was seen by Dr. Thierno Cast and Dr. Gomez. She was transferred to [facility] and seen by interventional radiology. While there, she had two drains placed. She was discharged from [facility] with her liver abscess drain still in place. The pelvic drain was removed prior to being discharged from [facility]. Five days ago, The patient followed up with IR and was told to keep her drain in for three more weeks. Four days ago, she started to have blood drain into the attached bag. Prior to this, the patient was only having "pus like" drainage from the abscess. She called IR at [facility] about the change in drainage and was told there was nothing of concern as long as she wasn't having symptoms. She has been having bloody drainage since and with her new onset of dizziness she became concerned which prompted her to come to the ED. The patient had acute diverticulitis a year ago and the physicians in [place] believe that her diverticulitis may have caused the abscesses. She denies any cough, fever, or urinary symptoms. The patient was on IV antibiotics up until [address] Escalante took out the patient's PICC line on Tuesday, four days ago, and put her on Flagyl and Omnicef. Source of History: patient Onset: last night Position: other (generalized) Quality: other (dizziness) Timing: constant Associated Symptoms: + nausea, + vomiting, No fevers, No cough, No urinary symptoms Review of Systems See HPI for pertinent positives & negatives. A total of 10 systems reviewed and were otherwise negative. Past Medical & Surgical Medical Problems: (1) Acute diverticulitis (2) DJD (degenerative joint disease) of knee (3) LIVER ABCESS, PELVIC ABCESS Family History Diverticulitis of colon Social History Smoking Status: Never Smoker Marital Status: in relationship Housing Status: lives with family Current/Historical Medications Scheduled Cefdinir (Omnicef), 300 MG PO BID Celecoxib (CeleBREX), 200 MG PO DAILY Fluoxetine (Prozac), 40 MG PO QAM Metronidazole (Flagyl), 500 MG PO TID Ondasetron Odt (Zofran Odt), 4 MG SL Q6H Allergies Coded Allergies: No Known Allergies (Verified , 03/14/17) Physical Exam Vital Signs Date Time Temp Pulse Resp B/P (MAP) Pulse Ox O2 Delivery O2 Flow Rate FiO2 03/14/17 11:32 77 18 124/87 98 Room Air 03/14/17 10:00 75 18 148/86 98 Room Air 03/14/17 09:02 74 03/14/17 08:52 36.4 70 20 142/80 98 Room Air Physical Exam GENERAL: Patient is in no acute distress. HEENT: No acute trauma, normocephalic atraumatic, mucous membranes moist, no nasal congestion, no scleral icterus. NECK: No stridor, no adenopathy, no meningismus, trachea is midline. LUNGS: Clear to auscultation bilaterally, no wheeze, no rhonchi, breath sounds equal. HEART: Without murmurs gallops or rubs, regular rate and rhythm. ABDOMEN: Abdominal drain in RUQ with serosanguineous and slightly bloody drainage. Soft, nontender, bowel sounds positive, no hernias, no peritonitis. EXTREMITIES: No cyanosis or edema, full range of motion of all the joints without pain or difficulty, no signs for acute trauma. NEUROLOGIC: Oriented x 3, no acute motor or sensory deficits, no focal weakness. SKIN: No rash, no jaundice, no diaphoresis. Medical Decision & Procedures ER Provider Diagnostic Interpretation: Radiology results as stated below per my review and radiologist interpretation: ABD/PELVIS IV CONTRAST ONLY FINDINGS: Shovel Log Loader Operator topogram: Right upper quadrant pigtail catheter remains in place. Total left hip arthroplasty. Lung bases: Minimal basilar opacities, likely atelectasis. Solid 10 mm pulmonary nodule in the medial basal segment of the left lower lobe (series 3 image 85), previously 7 mm on 06/08/2015. The central venous catheter is no longer visualized. Prominent right cardiophrenic/pericardial lymph node unchanged. Normal heart size. No pericardial or pleural effusion. Liver: The right hepatic lobe pigtail catheter remains positioned within segment 7. There is heterogeneous hypoperfusion in segment 7 though no focal fluid collection is evident. Remainder of hepatic parenchyma remarkable for few scattered calcifications in segment 8. Patent hepatic vasculature. Biliary: No intrahepatic or extrahepatic biliary ductal dilatation. Normal gallbladder. Pancreas: Normal. Spleen: Normal. Adrenal glands: Normal. Kidneys and ureters: Small fat-containing focus suspected in the right kidney suspected, possible angiomyolipoma. Remainder of renal parenchyma normal. No hydronephrosis. No nephrolithiasis. Ureters normal. Bladder: The previously noted collection along the dome of the bladder persists and now again has a focus of gas within it. This collection is intimately associated with the bladder dome. Extensive streak artifact arising from the total left hip arthroplasty somewhat degrades evaluation. Allowing for this, no focal enhancing bladder mucosa clearly separates the collection from the dome of the bladder. Pelvic organs: Uterus and ovaries normal. Bowel: The diverticulosis of the sigmoid colon with wall thickening likely indicating chronic diverticular disease. No pericolonic fat infiltration to suggest diverticulitis. The appendix is normal. No bowel obstruction. The sigmoid colon serosa approaches the left lateral superior aspect of the pelvic collection. Peritoneal cavity: The previous seen noted pelvic abscess now measures 3.3 x 2.0 cm, previously 2.9 x 2.0 cm. The collection now contains a focus of gas as mentioned above. No significant surrounding inflammatory changes. Additionally, as mentioned, there is no clear separation from the bladder lumen. No free fluid or gas. No new collection. Lymph nodes: No enlarged lymph nodes in the abdomen or pelvis. Vasculature: Aorta and IVC patent and normal in caliber. Abdominal wall: Small fat-containing umbilical hernia. No fluid or inflammatory changes associated with the abdominal wall course of the right upper quadrant pigtail catheter. Musculoskeletal: Total left hip arthroplasty. Degenerative changes of the lower lumbar spine. IMPRESSION: 1. The right hepatic collection has essentially resolved. Only residual heterogeneous enhancement of segment 7 persists. This may be reactive to the presence of the drain, postinfectious, or imply hypoperfusion. No new hepatic abscess. 2. Persistent pelvic collection, which again contains a focus of gas and now is indistinguishable from the adjacent bladder lumen. This raises concern for a fistula formation with the bladder, which could explain the essentially stable size of the collection despite the reported prior drain. 3. Evidence of chronic diverticular disease. No acute diverticulitis. 4. Solid left lower lobe pulmonary nodule, which remains concerning for primary bronchogenic neoplasm. The report will be called/faxed according to standard departmental protocol. Electronically signed by: Reed Davis M.D. Laboratory Results 03/14/17 09:00 Red Blood Count 4.54, Mean Corpuscular Volume 84.8, Mean Corpuscular Hemoglobin 26.9, Mean Corpuscular Hemoglobin Concent 31.7, Mean Platelet Volume 9.1, Neutrophils (%) (Auto) 55.5, Lymphocytes (%) (Auto) 31.7, Monocytes (%) (Auto) 6.4, Eosinophils (%) (Auto) 4.6, Basophils (%) (Auto) 1.3, Neutrophils # (Auto) 3.36, Lymphocytes # (Auto) 1.92, Monocytes # (Auto) 0.39, Eosinophils # (Auto) 0.28, Basophils # (Auto) 0.08 03/14/17 09:00 Test 03/14/17 00:00 03/14/17 09:00 03/14/17 09:20 Urine Color YELLOW Urine Appearance CLEAR (CLEAR) Urine pH 8.0 (4.5-7.5) Urine Specific [place] 1.012 (1.000-1.030) Urine Protein NEG (NEG) Urine Glucose (UA) NEG (NEG) Urine Ketones NEG (NEG) Urine Occult Blood NEG (NEG) Urine Nitrite NEG (NEG) Urine Bilirubin NEG (NEG) Urine Urobilinogen NEG (NEG) Urine Leukocyte Esterase TRACE (NEG) Urine WBC (Auto) 1-5 /hpf (0-5) Urine RBC (Auto) 0-4 /hpf (0-4) Urine Hyaline Casts (Auto) 1-5 /lpf (0-5) Urine Epithelial Cells (Auto) >30 /lpf (0-5) Urine Bacteria (Auto) NEG (NEG) Urine Renal Epithelial Cells /lpf (0-5) White Blood Count 6.06 K/uL (4.8-10.8) Red Blood Count 4.54 M/uL (4.2-5.4) Hemoglobin 12.2 g/dL (12.0-16.0) Hematocrit 38.5 % (37-47) Mean Corpuscular Volume 84.8 fL (80-100) Mean Corpuscular Hemoglobin 26.9 pg (25-34) Mean Corpuscular Hemoglobin Concent 31.7 g/dl (32-36) Platelet Count 296 K/uL (130-400) Mean Platelet Volume 9.1 fL (7.4-10.4) Neutrophils (%) (Auto) 55.5 % Lymphocytes (%) (Auto) 31.7 % Monocytes (%) (Auto) 6.4 % Eosinophils (%) (Auto) 4.6 % Basophils (%) (Auto) 1.3 % Neutrophils # (Auto) 3.36 K/uL (1.4-6.5) Lymphocytes # (Auto) 1.92 K/uL (1.2-3.4) Monocytes # (Auto) 0.39 K/uL (0.11-0.59) Eosinophils # (Auto) 0.28 K/uL (0-0.5) Basophils # (Auto) 0.08 K/uL (0-0.2) RDW Standard Deviation 54.0 fL (36.4-46.3) RDW Coefficient of Variation 17.3 % (11.5-14.5) Immature Granulocyte % (Auto) 0.5 % Immature Granulocyte # (Auto) 0.03 K/uL (0.00-0.02) Prothrombin Time 11.3 SECONDS (9.0-12.0) Prothromb Time International Ratio 1.1 (0.9-1.1) Activated Partial Thromboplast Time 26.1 SECONDS (21.0-31.0) Partial Thromboplastin Ratio 1.0 Anion Gap 11.0 mmol/L (3-11) Est Creatinine Clear Calc Drug Dose 100.0 ml/min Estimated GFR () 111.8 Estimated GFR (Non- 96.5 BUN/Creatinine Ratio 21.8 (10-20) Calcium Level 9.3 mg/dl (8.5-10.1) Magnesium Level 1.8 mg/dl (1.8-2.4) Total Bilirubin 0.4 mg/dl (0.2-1) Aspartate Amino Transf (AST/SGOT) 31 U/L (15-37) Alanine Aminotransferase (ALT/SGPT) 36 U/L (12-78) Alkaline Phosphatase 102 U/L (45-117) Total Protein 8.3 gm/dl (6.4-8.2) Albumin 3.6 gm/dl (3.4-5.0) Globulin 4.7 gm/dl (2.5-4.0) Albumin/Globulin Ratio 0.8 (0.9-2) Lipase 231 U/L (73-393) Lactic Acid Level 2.5 mmol/L (0.4-2.0) Laboratory results reviewed by me. Medications Administered Medications (Trade) Dose Ordered Sig/Alan Route Start Time Stop Time Status Last Admin Dose Admin Sodium Chloride 500 ml @ 999 mls/hr Q31M STAT IV 03/14/17 09:00 03/14/17 09:30 DC 03/14/17 09:38 999 MLS/HR Sodium Chloride 500 ml @ 999 mls/hr Q31M STAT IV 03/14/17 10:29 03/14/17 10:59 DC 03/14/17 10:29 999 MLS/HR Ondansetron HCl (ZOFRAN ODT 4MG Home Pack) 1 homepack UD ONCE PO 03/14/17 11:30 03/14/17 11:31 DC 03/14/17 11:30 1 HOMEPACK Ondansetron HCl (ZOFRAN ODT 4MG Home Pack) 1 homepack UD ONCE PO 03/14/17 11:30 03/14/17 11:31 DC 03/14/17 11:30 1 HOMEPACK ECG Indication: vomiting Rate (beats per minute): 70 Rhythm: normal sinus Findings: no acute ischemic change, no ectopy ED Course 0856: The patient was evaluated in room B6. A complete history and physical exam was performed. 0900: Ordered Sodium Chloride 500 ml @ 999 mls/hr IV. 1029: Ordered Sodium Chloride 500 ml @ 999 mls/hr IV. 1105: Discussed the patient's case with Dr. Phillips Surgical Oncology. He is very familiar with the patient and has been in contact with the patient since the onset of her symptoms. He was aware the patient was coming into the ED today. He agrees that the patient is stable for discharge and will follow up with the patient. 1111: I updated the patient and she is ready to go home. 1130: Ordered Ondansetron HCl 1 homepack, Ondansetron HCl 1 homepack. 1133: Reevaluated the patient. Discussed results and discharge instructions: She verbalized understanding and agreement. The patient is ready for discharge. Medical Decision Differential diagnoses: anemia, recurrent infection, failure outpatient treatment, dehydration, electrolyte abnormality, UTI, liver or renal failure. There is no leukocytosis or concerning anemia. No significant electrolyte abnormality, kidney failure or hepatitis. Lactic acid level is mildly elevated consistent with possible infection or dehydration. Urinalysis does not show infection. EKG showed a sinus rhythm, no acute ischemia. By workup, no evidence for pancreatitis. Abdominal and pelvis CT shows significant improvement in the liver abscess. There was a question raised as to whether the pelvic abscess may actually have a communication with the bladder. The patient received IV saline, she is doing well, she has had no further complaints. I discussed her case with her surgical team at [facility]. The patient was felt stable for discharge. Zofran to be used for nausea, hydration was encouraged. If she has heavier bleeding or if she has fever or chills, she should return. She will be followed as an outpatient through [facility]. The patient was encouraged to return to the ER for any worsening symptoms. Of note, I discussed the potential communication with the bladder and the pelvic abscess. The team at [facility] was aware of this already. The lung nodule noted incidentally on today's CT has been documented previously and the lung nodule program has already been instituted. Medication Reconcilliation Current Medication List: was personally reviewed by me Blood Pressure Screening Patient's blood pressure: Elevated blood pressure Blood pressure disposition: Elevated BP felt to be situational Consults Time Called: 110 Consulting Physician: Dr. Phillips Surgical Oncology Returned Call: [phone] Discussed the patient's case with Dr. Phillips Surgical Oncology. He is very familiar with the patient and has been in contact with the patient since the onset of her symptoms. He was aware the patient was coming into the ED today. He agrees that the patient is stable for discharge and will follow up with the patient. Impression Primary Impression: Lightheadedness Additional Impressions: Nausea Liver abscess Scribe Attestation The scribe's documentation has been prepared under my direction and personally reviewed by me in its entirety. I confirm that the note above accurately reflects all work, treatment, procedures, and medical decision making performed by me. Departure Information Dispostion Home / Self-Care Prescriptions Ondasetron Odt (ZOFRAN ODT) 4 Mg Tab 4 MG SL Q6H for Nausea, #10 TAB Prov: Aguilar Yeung M.D. 03/14/17 Referrals Franklyn Richardson M.D. (PCP) Forms HOME CARE DOCUMENTATION FORM, IMPORTANT VISIT INFORMATION Patient Instructions My [facility] Additional Instructions testing today was all ok--things are improving use zofran 1-2 tab every 6 hours for nausea stay well hydrated [place] [facility] return for fever, worsening drainage or worsening symptoms Problem Qualifiers
[2017-03-14] MEDS ORDERED: METR-163 PO (09:40)
[2017-03-14] MEDS ORDERED: CLB/200 PO (09:40)
[2017-03-14] MEDS ORDERED: CEFD300C2 PO (09:40)
[2017-03-14 09:43] LABS: BUN/CREATININE RATIO 21.8 (10-20); CALCIUM 9.3 mg/dl (8.5-10.1); CREATININE 0.65 mg/dl (0.60-1.20); MAGNESIUM 1.8 mg/dl (1.8-2.4); POTASSIUM 3.8 mmol/L (3.5-5.1)
[2017-03-14 09:46] LABS: ALB/GLOB RATIO 0.8 (0.9-2)
[2017-03-14 10:20] LABS: URINE APPEARANCE CLEAR (CLEAR); URINE BILIRUBIN NEG (NEG); URINE COLOR YELLOW; URINE EPITHELIAL CELL AUTO >30 /lpf (0-5); URINE NITRITE NEG (NEG); URINE SPECIFIC GRAVITY 1.012 (1.000-1.030); UROBILINOGEN NEG (NEG); ZZUR CULT IF INDIC CLEAN CATCH NO
[2017-03-14] MEDS ORDERED: SODIUM CHLORIDE 0.9% 500ML 500 ML IV STA (10:29)
[2017-03-14 10:31] LABS: MANUAL MICROSCOPIC REQUIRED? NO; REVIEW REQ? YES
--- NOTE | 2017-03-14 10:43 | DIAGNOSTIC IMAGING REPORT ---
ABD/PELVIS IV CONTRAST ONLY CLINICAL HISTORY: 62 years-old Female presenting with hepatic abscess, bleeding from drain, dizzy, recent PICC line and pelvic drains removed. TECHNIQUE: Multidetector CT of the abdomen and pelvis was performed after the administration of intravenous contrast. IV contrast: 94 mL of Optiray 320. A dose lowering technique was used consistent with the principles of ALARA (as low as reasonably achievable). COMPARISON: 03/08/2017. CT DOSE (mGy.cm): The estimated cumulative dose is 761.93 mGy.cm. FINDINGS: Gaming Director topogram: Right upper quadrant pigtail catheter remains in place. Total left hip arthroplasty. Lung bases: Minimal basilar opacities, likely atelectasis. Solid 10 mm pulmonary nodule in the medial basal segment of the left lower lobe (series 3 image 85), previously 7 mm on 06/08/2015. The central venous catheter is no longer visualized. Prominent right cardiophrenic/pericardial lymph node unchanged. Normal heart size. No pericardial or pleural effusion. Liver: The right hepatic lobe pigtail catheter remains positioned within segment 7. There is heterogeneous hypoperfusion in segment 7 though no focal fluid collection is evident. Remainder of hepatic parenchyma remarkable for few scattered calcifications in segment 8. Patent hepatic vasculature. Biliary: No intrahepatic or extrahepatic biliary ductal dilatation. Normal gallbladder. Pancreas: Normal. Spleen: Normal. Adrenal glands: Normal. Kidneys and ureters: Small fat-containing focus suspected in the right kidney suspected, possible angiomyolipoma. Remainder of renal parenchyma normal. No hydronephrosis. No nephrolithiasis. Ureters normal. Bladder: The previously noted collection along the dome of the bladder persists and now again has a focus of gas within it. This collection is intimately associated with the bladder dome. Extensive streak artifact arising from the total left hip arthroplasty somewhat degrades evaluation. Allowing for this, no focal enhancing bladder mucosa clearly separates the collection from the dome of the bladder. Pelvic organs: Uterus and ovaries normal. Bowel: The diverticulosis of the sigmoid colon with wall thickening likely indicating chronic diverticular disease. No pericolonic fat infiltration to suggest diverticulitis. The appendix is normal. No bowel obstruction. The sigmoid colon serosa approaches the left lateral superior aspect of the pelvic collection. Peritoneal cavity: The previous seen noted pelvic abscess now measures 3.3 x 2.0 cm, previously 2.9 x 2.0 cm. The collection now contains a focus of gas as mentioned above. No significant surrounding inflammatory changes. Additionally, as mentioned, there is no clear separation from the bladder lumen. No free fluid or gas. No new collection. Lymph nodes: No enlarged lymph nodes in the abdomen or pelvis. Vasculature: Aorta and IVC patent and normal in caliber. Abdominal wall: Small fat-containing umbilical hernia. No fluid or inflammatory changes associated with the abdominal wall course of the right upper quadrant pigtail catheter. Musculoskeletal: Total left hip arthroplasty. Degenerative changes of the lower lumbar spine. IMPRESSION: 1. The right hepatic collection has essentially resolved. Only residual heterogeneous enhancement of segment 7 persists. This may be reactive to the presence of the drain, postinfectious, or imply hypoperfusion. No new hepatic abscess. 2. Persistent pelvic collection, which again contains a focus of gas and now is indistinguishable from the adjacent bladder lumen. This raises concern for a fistula formation with the bladder, which could explain the essentially stable size of the collection despite the reported prior drain. 3. Evidence of chronic diverticular disease. No acute diverticulitis. 4. Solid left lower lobe pulmonary nodule, which remains concerning for primary bronchogenic neoplasm. The report will be called/faxed according to standard departmental protocol. Electronically signed by: Reed Davis M.D. 03/14/2017 10:42 AM Dictated Date/Time: 03/14/2017 10:31 AM
[2017-03-14] MEDS ORDERED: ONDA4TAB10 SL (11:24)
[2017-03-14] MEDS ORDERED: ONDANSETRON HOME PACK 4MG OD TAB PO ONE ×2 (11:30)
[2017-03-14 11:32] VITALS: BP 124/87; PULSE 77; O2SAT 98
== END 2017-03-14 11:43 | disposition home or self-care (01) ==
LOC: EDBD 08:47 → C.EDB 08:47
DX: R42 Dizziness and giddiness (principal); R11.0 Nausea; K75.0 Abscess of liver; Z83.79 Family history of other diseases of the digestive system

== ENCOUNTER → 2017-03-29 | Outpatient (CLI) | payer BC ==
[~2017-03-29] MED LIST changes: -ACET-1256 PO; +CEFD300C2 PO; +CLB/200 PO; +METR-163 PO; +ONDA4TAB10 SL
[2017-03-29 15:12] LABS: BASO % 0.6 %; BASO ABS # 0.06 K/uL (0-0.2); EOS % 3.9 %; EOS ABS # 0.38 K/uL (0-0.5); HEMATOCRIT 37.5 % (37-47); HEMOGLOBIN 11.9 g/dL (12.0-16.0); IG# 0.03 K/uL (0.00-0.02); LYMPH % 16.6 %; LYMPH ABS # 1.63 K/uL (1.2-3.4); MEAN CELL VOLUME 86.2 fL (80-100); MEAN CORPUSCULAR HEMOGLOBIN 27.4 pg (25-34); MEAN CORPUSCULAR HGB CONC 31.7 g/dl (32-36); MEAN PLATELET VOLUME 9.2 fL (7.4-10.4); MONO % 8.8 %; MONO ABS # 0.86 K/uL (0.11-0.59); NEUT % 69.8 %; NEUT ABS # 6.83 K/uL (1.4-6.5); PLATELET COUNT 259 K/uL (130-400); RED CELL DISTRIBUTION WIDTH CV 17.8 % (11.5-14.5); WHITE BLOOD COUNT 9.79 K/uL (4.8-10.8)
[2017-03-29 16:27] LABS: ALBUMIN 3.6 gm/dl (3.4-5.0); ALT/SGPT 26 U/L (12-78); AST/SGOT 16 U/L (15-37); BLOOD UREA NITROGEN 14 mg/dl (7-18); CALCIUM 9.1 mg/dl (8.5-10.1); CARBON DIOXIDE 25 mmol/L (21-32); CREATININE 0.74 mg/dl (0.60-1.20); GLUCOSE 116 mg/dl (70-99); POTASSIUM 3.5 mmol/L (3.5-5.1); SODIUM 134 mmol/L (136-145)
[2017-03-29 16:29] LABS: ALKALINE PHOSPHATASE 84 U/L (45-117); TOTAL PROTEIN 7.5 gm/dl (6.4-8.2)
== END | disposition home or self-care (01) ==
LOC: C.LABSPEC 14:47
PROVIDERS: ATTEND Internal Medicine
DX: K75.0 Abscess of liver (principal); D64.9 Anemia, unspecified